=== PATIENT | female | born 1985 | race Caucasian/White ===

== ENCOUNTER 2017-04-21 10:41 | Emergency (ER) | payer OTHER ==
[~2017-04-21] VITALS: Ht 162.6 cm; Wt 117.6 kg
[~2017-04-21 10:41] MED LIST: DULO60CA44 PO; LEVO25TA PO; PANT40TA PO
[2017-04-21 10:46] VITALS: TEMP 36.7; Ht 162.6 cm; Wt 117.6 kg
--- NOTE | 2017-04-21 11:51 | DIAGNOSTIC IMAGING REPORT ---
RIBS BILATERAL WITH PA CHEST CLINICAL HISTORY: rib pain felt pop with coughing trauma. Pain. COMPARISON STUDY: None FINDINGS: Normal ribs. Negative study of the chest. Lungs are clear. No evidence for pneumothorax. IMPRESSION: Negative study The above report was generated using voice recognition software. It may contain grammatical, syntax or spelling errors. Electronically signed by: Kobe Prater M.D. 04/21/2017 11:50 AM Dictated Date/Time: 04/21/2017 11:47 AM
[2017-04-21] MEDS ORDERED: ALBUTEROL HFA 8 GM INHALER INH STA (12:36)
[2017-04-21] MEDS ORDERED: METH4PAK PO (12:39)
[2017-04-21 12:57] VITALS: BP 147/97; PULSE 70; O2SAT 97
--- NOTE | 2017-04-21 16:35 | EMERGENCY ROOM VISIT NOTE ---
History First contact with patient: 11:11 Chief Complaint: RIB PAIN Stated Complaint: RIB PAIN,COUGHING History of Present Illness The patient is a 31 year old female who presents to the Emergency Room with complaints of right-sided rib pain. The patient reports that she developed a cold one month ago. She has had a persistent cough since that time. When she started to develop rib pain, she was seen at the urgent care center in [place] where she had x-rays performed that were normal. The patient reports that her cough has been mostly nonproductive, and has also been intermittent. She denies any shortness of breath, chest pain, back pain or fever. The patient reports that when she was coughing today, she felt a pop in her right rib region. Now she reports worsening pain with movement. She rates her discomfort a 10 out of 10. Review of Systems 10 system review was performed and was negative except for pertinent positives and negatives as indicated in history of present illness Past Medical/Surgical History Medical Problems: (1) GERD (gastroesophageal reflux disease) (2) Ulcerative colitis Surgical Problems: (1) Previous section Family History No significant family history Social History Smoking Status: Former Smoker Alcohol Use: none Marital Status: single, in relationship Housing Status: lives with family Occupation Status: employed Current/Historical Medications Scheduled Duloxetine Hcl (Cymbalta), 60 MG PO DAILY Levothyroxine Sodium (Synthroid), 25 MCG PO DAILY Methylprednisolone (Medrol Dosepak), 0 PO DAILY Pantoprazole (Protonix), 40 MG PO BID Physical Exam Vital Signs Date Time Temp Pulse Resp B/P (MAP) Pulse Ox O2 Delivery O2 Flow Rate FiO2 04/21/17 12:57 70 20 147/97 97 04/21/17 10:46 36.7 94 18 161/92 100 Room Air Physical Exam CONSTITUTIONAL: Healthy and well nourished. Alert and oriented X 3 with positive affect. Patient does not appear in any acute distress on exam. HEENT: Normocephalic, atraumatic. Pupils equal, round and reactive. No subconjunctival hemorrhages. NECK: Full active range of motion without discomfort. RESPIRATORY: Clear to auscultation bilaterally with no wheezing, crackles, rhonchi or stridor. Deep breathing does not worsen her discomfort. CARDIOVASCULAR: Regular rate and rhythm with no murmurs, rubs or gallops. GASTROINTESTINAL: Bowel sounds present in all quadrants. Soft and nontender to palpation. MUSCULOSKELETAL: Examination shows generalized and nonfocal tenderness to palpation of the right anterolateral ribs. No ecchymosis, soft tissue edema, erythema, subcutaneous emphysema or flail chest noted. No costochondral tenderness to palpation. INTEGUMENTARY: No rash or other significant dermatologic conditions noted. NEUROLOGIC: No focal neurologic deficits noted. Medical Decision & Procedures ER Provider Diagnostic Interpretation: My interpretation of bilateral rib x-rays with a PA chest. Does not show any consolidations or obvious fractures. Radiologist report is as follows: RIBS BILATERAL WITH PA CHEST CLINICAL HISTORY: rib pain felt pop with coughing trauma. Pain. COMPARISON STUDY: None FINDINGS: Normal ribs. Negative study of the chest. Lungs are clear. No evidence for pneumothorax. IMPRESSION: Negative study Medications Administered Medications (Trade) Dose Ordered Sig/Cassidy Route Start Time Stop Time Status Last Admin Dose Admin Albuterol (Ventolin Hfa Inhaler) 2 puffs ONE STAT INH 04/21/17 12:36 04/21/17 12:37 DC 04/21/17 12:48 2 PUFFS ED Course Patient history and physical exam were performed. Nurse's notes were reviewed. Vital signs were reviewed, showing an elevated blood pressure of 161/92. O2 saturation is 100% on room air. Patient is afebrile and not tachycardic. She also does not appear in any acute distress. Bilateral rib x-rays with a PA chest. Does not show any obvious rib fractures or consolidations. Because the symptoms have been intermittent, I did suggest that she follow-up with her PCP as needed symptoms are not improving within the next week. She was administered /dispensed an albuterol metered-dose inhaler with Aero[employer] while in the emergency department. She also was provided a prescription for a Medrol Dosepak. Patient reports that she does have Tessalon Perles at home for cough. She was also encouraged to use Mucinex and other OTC cough medications as needed. Ibuprofen or Tylenol as needed for pain. Return to the emergency department for any significant worsening symptoms. The patient was happy with plan of care, voiced understanding of all discharge instructions, and denied any significant discomfort at the time of discharge. The patient was also advised of her elevated blood pressure, and encouraged to follow-up with your PCP for blood pressure recheck. Medical Decision Given the patient's history and symptoms, I do not suspect pulmonary embolus. Her chest x-ray does not show any consolidations consistent with pneumonia. X- rays also are not suggestive of rib fracture, pneumothorax, widened mediastinum or cardiomegaly. Medication Reconcilliation Current Medication List: was personally reviewed by me Blood Pressure Screening Patient's blood pressure: Elevated blood pressure Blood pressure disposition: Referred to PCP Impression Primary Impression: Bronchitis Additional Impression: Elevated blood pressure reading Departure Information Prescriptions Methylprednisolone (MEDROL DOSEPAK) 4 Mg Ko 0 PO DAILY, #1 PKT Prov: Earl Rogers PA 04/21/17 Referrals Jimmy Huynh D.O. (PCP) Patient Instructions My [facility] Problem Qualifiers
== END 2017-04-21 12:59 | disposition home or self-care (01) ==
LOC: C.EDB 10:44 → C.EDD 12:59
DX: J20.9 Acute bronchitis, unspecified (principal); R03.0 Elevated blood-pressure reading, without diagnosis of hypertension; K21.9 Gastro-esophageal reflux disease without esophagitis